=== PATIENT | male | born 1990 | race Hispanic/Latino ===

== ENCOUNTER 2018-11-11 21:10 | Emergency (ER) | payer BC, OTHER ==
[2018-11-11] MEDS ORDERED: LIDOCAINE HCL 1% 20 ML VIAL ONE (21:44)
[2018-11-11] MEDS ORDERED: TETANUS/DIPHTHERIA TOXOID [ADULT] 0.5 ML VIAL IM ONE (22:15)
== END 2018-11-11 22:24 | disposition home or self-care (01) ==
LOC: EDH 21:10
DX: S61.210A Laceration without foreign body of right index finger without damage to nail, initial encounter (principal); Z90.49 Acquired absence of other specified parts of digestive tract; Z87.891 Personal history of nicotine dependence; W26.0XXA Contact with knife, initial encounter; Y93.G3 Activity, cooking and baking; Y92.89 Other specified places as the place of occurrence of the external cause; Y99.8 Other external cause status
CPT/HCPCS: 90471; 90714